=== PATIENT | female | born 1995 | race Caucasian/White ===

== ENCOUNTER 2021-08-17 14:06 | Emergency (ER) | payer MEDICAID ==
[~2021-08-17] VITALS: Ht 167.6 cm; Wt 75.0 kg
[2021-08-17 14:37] VITALS: BP 120/82
[2021-08-17 16:08] LABS: CLARITY URINE CLEAR (CLEAR); COLOR URINE YELLOW (YELLOW); KETONES URINE TRACE (NEGATIVE); LEUKOCYTE ESTERASE URINE 2+ (NEGATIVE); NITRITE URINE NEGATIVE (NEGATIVE); OCCULT BLOOD URINE NEGATIVE (NEGATIVE); PH URINE 6.5 (4.5-8.0); PROTEIN URINE TRACE (NEGATIVE); SPECIFIC GRAVITY URINE 1.028 (1.005-1.030)
[2021-08-17] MEDS ORDERED: LIDOCAINE HCL 1% 20ML VIAL (Pyxis) INJ INFIL ONE (16:45)
[2021-08-17] MEDS ORDERED: DOXYCYCLINE HYCLATE 100MG CAPSULE PO ONE (16:45)
[2021-08-17] MEDS ORDERED: CEFTRIAXONE SODIUM 500 MG/VIAL IM ONE (16:45)
[2021-08-17] MEDS ORDERED: METR500T MT (17:04)
[2021-08-17] MEDS ORDERED: IBUP-2029 MT ×2 (17:04)
[2021-08-17] MEDS ORDERED: CEPH500C2 MT (17:04)
[2021-08-17] MEDS ORDERED: DOXY100T2 MT (17:04)
[2021-08-17] MEDS ORDERED: FLUC150T5 MT (17:39)
[2021-08-20 08:22] LABS: NEISSERIA GONORRHOEAE NAA Negative (Negative)
== END 2021-08-17 18:02 | disposition home or self-care (01) ==
LOC: ER 14:06
DX: N39.0 Urinary tract infection, site not specified (principal); Z79.899 Other long term (current) drug therapy
CPT/HCPCS: 81003; 87210; 87491; 87591; 99283; J0696; J3490